=== PATIENT | male | born 1980 | race African-American/Black ===

== ENCOUNTER 2020-09-05 18:10 | Emergency (ER) | payer MEDICARE ==
[2020-09-05] MEDS ORDERED: Alum Hydrox/Mag Hydrox/Simeth 15 ML, Lidocaine 2% 5 ML PO ONE ×2 (18:31)
[2020-09-05] MEDS ORDERED: Ondansetron 4 MG/2 ML SDV IVPUSH ONE (18:32)
[2020-09-05] MEDS ORDERED: Famotidine 20 MG Tab PO ONE (18:32)
[2020-09-05 19:13] LABS: BLOOD UREA NITROGEN,BUN 9 mg/dL (7.0-18.0); CARBON DIOXIDE,CO2 20.9 mmol/L (21.0-32.0); CHLORIDE,CL 99 mmol/L (98-107); GLUCOSE RANDOM 110 mg/dL (74-106); LIPASE 69 U/L (73-393); POTASSIUM,K 3.1 mmol/L (3.5-5.1); SODIUM,NA 139 mmol/L (136-148)
--- NOTE | 2020-09-05 19:36 | CR ---
Indication: hypoxia Technique: Chest 1 view Comparison: None Findings/Impression: Cardiovascular and mediastinum: Heart size and vasculature are normal in caliber and appearance. Mediastinum is within normal limits. Lungs and pleural space: Lungs are clear. No sign of infiltrate or mass. No sign of pleural effusion. No pneumothorax. Bones and soft tissues: No significant findings. Dictated by Elaine Schwarz MD @ 09/05/2020 7:34:[address] Elaine Schwarz @ Sep 05 2020 7:34PM
[2020-09-05] MEDS ORDERED: Potassium Chloride 20 MEQ Tab.ER PO ONE (19:39)
[2020-09-05] MEDS ORDERED: Magnesium Oxide 400 MG Tab PO ONE (19:39)
--- NOTE | 2020-09-05 19:43 | EDM.PDOC ---
<Garrett Griffin - Last Filed: 09/05/20 19:52> ED HPI GENERAL MEDICAL PROBLEM - General Chief Complaint: Gastrointestinal Problem Stated Complaint: VOMITTING Time Seen by Provider: 09/05/20 18:23 - History of Present Illness INITIAL COMMENTS - FREE TEXT/NARRATIVE: CHIEF COMPLAINT(S): Vomiting blood HISTORY OF PRESENT ILLNESS: This is a 39-year-old man with a past medical history of seizure disorder on Keppra who comes to the emergency department with a chief complaint of vomiting blood. The patient states that he woke up this morning and he has been having vomiting multiple times throughout the day which she describes as bright red blood. He denies any abdominal pain, chest pain, or shortness of breath. He states that he has been mildly sweaty all day. He denies any syncope. He has not had a bowel movement today. He denies any headache, pain with urination, melena, or hematochezia. He states that he did drink yesterday approximately 412 ounce Budweiser's and had some rice and did not have any red food. He states that this has never happened before. He denies any fevers or chills. He denies any Covid exposures. REVIEW OF SYSTEMS: Constitutional: Denies fever, chills. Eyes: Denies eye pain Ears, Nose, Mouth, & Throat: Denies earache Cardiovascular: Denies chest pain Respiratory: Denies shortness of breath Gastrointestinal: Positive for red vomit/bloody vomit. Denies abdominal pain, melena, hematochezia, bilious emesis Genitourinary: Denies hematuria, dysuria Skin:Denies a rash MSK: Denies joint pain Neurological: Denies blurred vision Psychiatric: Denies depression PAST MEDICAL HISTORY: As per history of present illness and as reviewed below otherwise noncontributory. SURGICAL HISTORY: As per history of present illness and as reviewed below otherwise noncontributory. SOCIAL HISTORY: As per history of present illness and as reviewed below otherwise noncontributory. FAMILY HISTORY: As per history of present illness and as reviewed below otherwise noncontributory. EXAMINATION OF ORGAN SYSTEMS/BODY AREAS: Constitutional: Blood pressure was 154/102, heart rate 71, respiratory 17 with an oxygen saturation 94% on room air. Temperature 36.6 General: Overall well-appearing man who is in no acute distress Psychiatric: Appropriate mood and affect. Eyes: No scleral icterus or conjunctival erythema conjunctiva was not pale. ENMT: Moist mucous membranes. No pharyngeal erythema mucous membranes are pink. Cardiovascular: Regular, rate, and rhythm. No gallops, murmurs, or rubs. Bilateral upper extremity pulses symmetric and intact. No peripheral edema. No JVD. Respiratory: Lungs clear to auscultation bilaterally. No wheezes, rales, or rhonchi. Gastrointestinal: Soft, non-tender, non-distended. Hyperactive bowel sounds. Negative rebound. No guarding. Genitourinary: No suprapubic tenderness Musculoskeletal: Normal range of motion. Skin: No lesions or abrasions. Neurological: Alert, GCS 15 MEDICAL DECISION MAKING AND COURSE IN THE ED WITH INTERPRETATION/REVIEW OF DIAGNOSTIC STUDIES: This is a 39-year-old man with a past medical history of seizure disorder who comes to the emergency department with reported hematemesis starting this morning who was drinking last night who is mildly hypoxic and mildly hypertensive who overall appears well. At this time I did perform a rectal examination with nurse practitioner Annalisa William at bedside. Stool was brown and guaiac was negative. At this time I do suspect gastritis, peptic ulcer disease, esophagitis. We will provide the patient with Zofran, GI cocktail, famotidine and reevaluate for p.o. toleration. This could be secondary to a Jeanette-Villasenor tear from vomiting. There is no crepitus on examination so Boerhaave's is unlikely. The patient does appear well. Will obtain labs including CBC, CMP, lipase, Covid, and chest x-ray. We will obtain coagulation studies. At the time of signout the patient's labs and reevaluation was pending. DISPOSITION: [facility] pending reevaluation and work-up. Patient's labs are stable and patient is able to tolerate p.o. the patient can likely go home with PPI and follow-up for EGD c olonoscopy. CONDITION: Fair PROCEDURES: None FINAL IMPRESSION(S)/DIAGNOSES: 1. Acute vomiting, possible hematemesis likely secondary to gastritis, peptic ulcer disease or esophagitis. Garrett Griffin M.D. - Related Data Allergies Allergy/AdvReac Type Severity Reaction Status Date / Time No Known Allergies Allergy Verified 09/05/20 18:20 Home Meds: Home Meds Ondansetron [Zofran ODT] 4 mg PO Q6H PRN #10 tab.dis 09/05/20 [Rx] Pantoprazole Sodium [Protonix] 40 mg PO DAILY #30 tablet. 09/05/20 [Rx] Sucralfate [Carafate] 1 gm PO Q6HR #21 tab 09/05/20 [Rx] levETIRAcetam [Keppra] 250 mg PO DAILY 09/05/20 [History] traZODone 50 mg PO BEDTIME 09/05/20 [History] Past Medical History Neurological History: Reports: Seizure Social & Family History - Tobacco Use Tobacco Use Status *Q: Never Tobacco User - Recreational Drug Use Recreational Drug Use: No ED ROS GENERAL - Review of Systems Review Of Systems: See Below ED EXAM, GENERAL - Physical Exam Exam: See Below Departure - Departure Disposition: Home, Self-Care 01 Clinical Impression: Gastritis Qualifiers: Gastritis type: unspecified gastritis Chronicity: acute Gastritis bleeding: with bleeding Qualified Code(s): K29.01 - Acute gastritis with bleeding - Discharge Information Prescriptions: Sucralfate [Carafate] 1 gm PO Q6HR #21 tab Pantoprazole Sodium [Protonix] 40 mg PO DAILY #30 tablet. Ondansetron [Zofran ODT] 4 mg PO Q6H PRN #10 tab.dis PRN Reason: Nausea/Vomiting Instructions: Gastritis, Adult Referrals: PCP,None [Primary Care Provider] - Forms: ED Department Discharge Additional Instructions: Please follow-up with general surgery. If you have continued vomiting and are unable to keep anything down, if you develop chest pain or difficulty breathing, or if you have an episode of passing out then these can all be signs of severe blood loss and you need to come back to the emergency department. Otherwise take the medications that I prescribed and follow-up with general surgery for an endoscopy. Please also see the attached information on gastritis which highlights foods to avoid. [facility] General Surgery Professional Building [address] [place] [address], [address] [place] [address] If you'd prefer to follow up with a edge trimming machine operator (GI tract specialist), there is one in [place]: [address] [place] [address] The following information is given to patients seen in the emergency department who are being discharged to home. This information is to outline your options for follow-up care. We provide all patients seen in our emergency department with a follow-up referral. The need for follow-up, as well as the timing and circumstances, are variable depending upon the specifics of your emergency department visit. If you don't have a primary care physician on staff, we will provide you with a referral. We always advise you to contact your personal physician following an emergency department visit to inform them of the circumstance of the visit and for follow-up with them and/or the need for any referrals to a consulting specialist. The emergency department will also refer you to a specialist when appropriate. This referral assures that you have the opportunity for follow-up care with a specialist. All of these measure are taken in an effort to provide you with optimal care, which includes your follow-up. Under all circumstances we always encourage you to contact your private physician who remains a resource for coordinating your care. When calling for follow-up care, please make the office aware that this follow-up is from your recent emergency room visit. If for any reason you are refused follow-up, please contact the [facility] Emergency Department at and asked to speak to the emergency department charge nurse. Please follow up with your primary care physician. If you do not have a primary care physician, see below: [facility] [address] [place] [address] [facility] [address] [place] [address] [facility] [address] [place] [address] Sepsis Event Note (ED) - Evaluation Sepsis Screening Result: No Definite Risk <Jameel Ferreira - Last Filed: 09/05/20 20:10> Course - Vital Signs Last Recorded V/S: Last Vital Signs Temp 98.1 F 09/05/20 19:10 Pulse 84 09/05/20 19:10 Resp 20 09/05/20 19:10 BP 131/82 09/05/20 19:10 Pulse Ox 98 09/05/20 19:10 - Orders/Labs/Meds Labs: Laboratory Tests 09/05/20 09/05/20 09/05/20 Range/Units 18:35 18:35 18:38 WBC 3.93 L (4.0-11.0) K/uL RBC 4.14 L (4.50-5.90) M/uL Hgb 13.4 (13.0-17.0) g/dL Hct 38.6 (38.0-50.0) % MCV 93.2 (80.0-98.0) fL MCH 32.4 H (27.0-32.0) pg MCHC 34.7 (31.0-37.0) g/dL RDW Std Deviation 53.4 (28.0-62.0) fl RDW Coeff of Sapna 16 H (11.0-15.0) % Plt Count 100 L (150-400) K/uL MPV 11.20 (7.40-12.00) fL Neut % (Auto) 61.6 (48.0-80.0) % Lymph % (Auto) 23.9 (16.0-40.0) % Wythe % (Auto) 13.7 (0.0-15.0) % Eos % (Auto) 0.0 (0.0-7.0) % Baso % (Auto) 0.8 (0.0-1.5) % Neut # (Auto) 2.4 (1.4-5.7) K/uL Lymph # (Auto) 0.9 (0.6-2.4) K/uL Wythe # (Auto) 0.5 (0.0-0.8) K/uL Eos # (Auto) 0.0 (0.0-0.7) K/uL Baso # (Auto) 0.0 (0.0-0.1) K/uL Nucleated RBC % 0.0 /100WBC Nucleated RBCs # 0 K/uL INR APTT (18.6-31.3) SEC Sodium 139 (136-148) mmol/L Potassium 3.1 L (3.5-5.1) mmol/L Chloride 99 (98-107) mmol/L Carbon Dioxide 20.9 L (21.0-32.0) mmol/L BUN 9 (7.0-18.0) mg/dL Creatinine 1.0 (0.8-1.3) mg/dL Est Cr Clr Drug Dosing 110.31 mL/min Estimated GFR (MDRD) > 60.0 ml/min Glucose 110 H (74-106) mg/dL Calcium 8.7 (8.5-10.1) mg/dL Magnesium 1.5 L (1.8-2.4) mg/dL Total Bilirubin 0.5 (0.2-1.0) mg/dL AST 261 H (15-37) IU/L ALT 152 H (14-63) IU/L Alkaline Phosphatase 86 (46-116) U/L Total Protein 9.2 H (6.4-8.2) g/dL Albumin 3.9 (3.4-5.0) g/dL Globulin 5.3 H (2.6-4.0) g/dL Albumin/Globulin Ratio 0.7 L (0.9-1.6) Lipase 69 L (73-393) U/L SARS-CoV-2 RNA (JACQUELINE) NEGATIVE (NEGATIVE) 09/05/20 Range/Units 18:40 WBC (4.0-11.0) K/uL RBC (4.50-5.90) M/uL Hgb (13.0-17.0) g/dL Hct (38.0-50.0) % MCV (80.0-98.0) fL MCH (27.0-32.0) pg MCHC (31.0-37.0) g/dL RDW Std Deviation (28.0-62.0) fl RDW Coeff of Sapna (11.0-15.0) % Plt Count (150-400) K/uL MPV (7.40-12.00) fL Neut % (Auto) (48.0-80.0) % Lymph % (Auto) (16.0-40.0) % Wythe % (Auto) (0.0-15.0) % Eos % (Auto) (0.0-7.0) % Baso % (Auto) (0.0-1.5) % Neut # (Auto) (1.4-5.7) K/uL Lymph # (Auto) (0.6-2.4) K/uL Wythe # (Auto) (0.0-0.8) K/uL Eos # (Auto) (0.0-0.7) K/uL Baso # (Auto) (0.0-0.1) K/uL Nucleated RBC % /100WBC Nucleated RBCs # K/uL INR 1.03 APTT 21.4 (18.6-31.3) SEC Sodium (136-148) mmol/L Potassium (3.5-5.1) mmol/L Chloride (98-107) mmol/L Carbon Dioxide (21.0-32.0) mmol/L BUN (7.0-18.0) mg/dL Creatinine (0.8-1.3) mg/dL Est Cr Clr Drug Dosing mL/min Estimated GFR (MDRD) ml/min Glucose (74-106) mg/dL Calcium (8.5-10.1) mg/dL Magnesium (1.8-2.4) mg/dL Total Bilirubin (0.2-1.0) mg/dL AST (15-37) IU/L ALT (14-63) IU/L Alkaline Phosphatase (46-116) U/L Total Protein (6.4-8.2) g/dL Albumin (3.4-5.0) g/dL Globulin (2.6-4.0) g/dL Albumin/Globulin Ratio (0.9-1.6) Lipase (73-393) U/L SARS-CoV-2 RNA (JACQUELINE) (NEGATIVE) Meds: Medications Discontinued Medications Generic Name Dose Route Start Last Admin Trade Name Freq PRN Reason Stop Dose Admin Al Hydroxide/Mg Hydroxide 15 0 ml 09/05/20 18:31 09/05/20 18:50 ml/ Lidocaine HCl 5 ml PO 09/05/20 18:32 1 each ONETIME ONE Administration Famotidine 20 mg 09/05/20 18:32 09/05/20 18:50 Famotidine 20 Mg Tab PO 09/05/20 18:33 20 mg ONETIME ONE Administration Magnesium Oxide 400 mg 09/05/20 19:39 09/05/20 20:03 Magnesium Oxide 400 Mg Tab PO 09/05/20 19:40 400 mg ONETIME ONE Administration Ondansetron HCl 4 mg 09/05/20 18:32 09/05/20 18:50 Ondansetron 4 Mg/2 Ml Sdv IVPUSH 09/05/20 18:33 4 mg ONETIME ONE Administration Potassium Chloride 40 meq 09/05/20 19:39 09/05/20 20:03 Potassium Chloride 20 Meq Tab.Er PO 09/05/20 19:40 40 meq ONETIME ONE Administration - Re-Assessments/Exams Free Text/Narrative Re-Assessment/Exam: 09/05/20 19:46 Patient is feeling better without repeat episode of vomiting in ER. Labs remarkable for leukopenia, thrombocytopenia, mild transaminitis AST>ALT, COVID negative, normal h/h. Spoke with patient regarding likely gastritis diagnosis but stressed importance of f/u with general surgery for endoscopy. Stressed return precautions for continued hematemesis, syncope, CP, or SOB. Will give protonix, carafate, zofran as outpatient meds. Departure - Departure Time of Disposition: 19:47 Condition: Good Sepsis Event Note (ED) - Focused Exam Vital Signs: Vital Signs Temp Pulse Resp BP Pulse Ox 09/05/20 19:10 98.1 F 84 20 131/82 98 09/05/20 18:21 98 F 71 17 154/102 H 94 L
== END 2020-09-05 20:10 | disposition home or self-care (01) ==
LOC: MW.ED 18:10
DX: K29.01 Acute gastritis with bleeding (principal); Z79.899 Other long term (current) drug therapy
CPT/HCPCS: 36415; 71045; 80053; 83690; 83735; 85025; 85610; 85730; 96374; 99285; A9270; J2405; U0002; 99283